=== PATIENT | male | born 1955 | race Caucasian/White ===

== ENCOUNTER → 2021-10-02 | Outpatient (REF) | payer BC | LOC: M LAB REF 19:06 | PROVIDERS: ATTEND Dermatology | DX: L90.5 Scar conditions and fibrosis of skin (principal) ==

== ENCOUNTER → 2022-03-30 | Outpatient (REF) | payer MEDICARE, BC | LOC: M SFHCDERM 17:28 | PROVIDERS: ATTEND Physician Assistant | DX: L72.0 Epidermal cyst (principal) ==

== ENCOUNTER → 2022-12-31 | Outpatient (CLI) | payer MEDICARE, BC ==
[~2022-12-31] MED LIST: PROHANCE 279.3MG/ML 15ML VIAL As Ordered ONE
== END ==
LOC: M RAD 12:24
PROVIDERS: ATTEND Urology
DX: N41.1 Chronic prostatitis (principal)
CPT/HCPCS: 72197; A9576

== ENCOUNTER → 2024-10-22 | Outpatient (CLI) | payer MEDICARE, BC | LOC: M RAD 07:50 | PROVIDERS: ATTEND Urology | DX: R97.20 Elevated prostate specific antigen [PSA] (principal) | CPT/HCPCS: 72197; A9576 ==

== ENCOUNTER → 2025-01-29 | Outpatient (REF) | payer MEDICARE, BC | LOC: M SMT 13:14 | PROVIDERS: ATTEND Urology | DX: R97.20 Elevated prostate specific antigen [PSA] (principal) ==